=== PATIENT | female | born 1970 ===

== ENCOUNTER 2022-07-11 15:02 | Outpatient (REF) | payer OTHER, SELFPAY ==
--- NOTE | 2022-07-11 14:40 | PAPFT_PTH ---
PATIENT: Inna Syed LOC: [facility] U#:[id number] AGE/SX: 51/F ROOM: RE07/11/[address]: Aliyah Mckee DO : 1970 BED: DIS: 07/11/2022 SPEC #: [id number] RECD: 07/11/22 16:05 STATUS: VERONICA REQ #: [id number] [place]UST[place]: 07/11/22 14:[address]: Aliyah Mckee DEPT: [facility] Cytology RECD BY: Vanesa Goodman ENTERED: 07/11/22 16:05 SP TYPE: PAPFT OTHR DR: Remigio Lovell Tissues: 1 - CX/ENDOCX FOR PAP SMEARS Procedures: PAP THIN PREP/[facility] Screening HPV DNA PROBE Comments: [id number]
== END 2022-07-11 15:03 | disposition home or self-care (01) ==
LOC: LBN 15:02
PROVIDERS: PCP Nurse Practitioner Acute Care; Visit Provider Obstetrics & Gynecology
DX: Z12.4 Encounter for screening for malignant neoplasm of cervix (principal); Z11.51 Encounter for screening for human papillomavirus (HPV)
CPT/HCPCS: 88142; 87624